=== PATIENT | female | born 1990 ===

== ENCOUNTER 2018-08-06 09:55 | Outpatient (CLI) | payer SELFPAY | END 2018-08-06 09:56 | disposition home or self-care (01) | LOC: C.LAB 09:55 | DX: Z34.92 Encounter for supervision of normal pregnancy, unspecified, second trimester (principal) ==

== ENCOUNTER → 2018-08-30 | Outpatient (CLI) | payer SELFPAY | LOC: C.LAB 10:13 | DX: Z34.92 Encounter for supervision of normal pregnancy, unspecified, second trimester (principal) ==

== ENCOUNTER 2018-09-23 09:04 | Outpatient (CLI) | payer SELFPAY | END 2018-09-23 09:05 | disposition home or self-care (01) | LOC: C.LAB 09:04 | DX: Z34.92 Encounter for supervision of normal pregnancy, unspecified, second trimester (principal) ==

== ENCOUNTER 2018-11-13 08:37 | Outpatient (CLI) | payer SELFPAY | END 2018-11-13 08:38 | disposition home or self-care (01) | LOC: C.LAB 08:37 | DX: Z34.93 Encounter for supervision of normal pregnancy, unspecified, third trimester (principal) ==